=== PATIENT | female | born 1985 | race Caucasian/White ===

== ENCOUNTER 2021-05-22 16:15 | Outpatient (CLI) | payer OTHER, SELFPAY ==
--- NOTE | 2021-05-22 16:25 | XR_ITS ---
WS: [id number] Nasal bones, 3 views, 05/22/2021 Clinical Data: S09.93XA - Unspecified injury of face, initial encounter Comparison: None. Findings: There is a fracture of the midportion of the nasal bone with slight depression of the distal tip. The re is an air-fluid level in the right maxillary sinus which may represent blood. XR/XR nasal bones min 3V [id number] Impression: Fracture of the nasal bone.
== END 2021-05-22 16:16 | disposition home or self-care (01) ==
LOC: RAD 16:19
PROVIDERS: PCP Family Medicine; Visit Provider Emergency Medicine
DX: S02.2XXA Fracture of nasal bones, initial encounter for closed fracture (principal); X58.XXXA Exposure to other specified factors, initial encounter
CPT/HCPCS: 70160